=== PATIENT | female | born 1985 | race Caucasian/White ===

== ENCOUNTER 2017-09-30 06:08 | Inpatient (IN) | payer OTHER ==
[~2017-09-30] VITALS: Ht 162.6 cm; Wt 58.1 kg
[2017-09-30] VITALS (7 sets, daily range): BP systolic 112–124; BP diastolic 67–84
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
[~2017-09-30 06:08] MED LIST: CENTRUM SILVER1 EAC4 PO; FISH OIL 1,001000 M2 PO; HYDROCODONE-AP1 EAC6 PO
[2017-10-01 03:56] VITALS: BP 104/41
[2017-10-01 08:15] VITALS: BP 96/44
[2017-10-01 16:06] VITALS: BP 96/44
== END 2017-10-01 16:15 | disposition home or self-care (01) | DRG 27 ==
LOC: TBA 06:08 → OR 09:10 → EDSTATUS 12:36 → PRE 12:37 → 4N 15:34 → PRE 16:09 → 4N 10-01 16:15
PROC: 0NS104Z Reposition Frontal Bone with Internal Fixation Device, Open Approach (ICD-10-PCS; principal; 2017-09-30)
DX: S02.19XA Other fracture of base of skull, initial encounter for closed fracture (principal); V89.2XXA Person injured in unspecified motor-vehicle accident, traffic, initial encounter; Y93.89 Activity, other specified; Y92.89 Other specified places as the place of occurrence of the external cause; Y99.8 Other external cause status; G43.909 Migraine, unspecified, not intractable, without status migrainosus; Z82.61 Family history of arthritis; Z82.5 Family history of asthma and other chronic lower respiratory diseases; Z83.3 Family history of diabetes mellitus; Z82.49 Family history of ischemic heart disease and other diseases of the circulatory system; Z79.899 Other long term (current) drug therapy
CPT/HCPCS: 10790; 50010; 50101; 50331; 50386; 50398; 51412; 54300; 55430; 56524; 56525; 56528; 62110; 62900; 70005